=== PATIENT | male | born 1980 | race Caucasian/White ===

== ENCOUNTER 2021-05-09 18:00 | Emergency (ER) | payer SELFPAY ==
[~2021-05-09] VITALS: Ht 172.7 cm; Wt 86.2 kg
== END 2021-05-09 21:21 | disposition home or self-care (01) ==
LOC: ER 18:10
DX: M79.642 Pain in left hand (principal); M79.641 Pain in right hand; F10.10 Alcohol abuse, uncomplicated; I10 Essential (primary) hypertension; Z87.820 Personal history of traumatic brain injury
CPT/HCPCS: 99283